=== PATIENT | male | born 1985 | race Caucasian/White ===

== ENCOUNTER 2023-03-28 11:45 | Emergency (ER) | payer OTHER, SELFPAY ==
[2023-03-28 11:54] VITALS: BP 113/66; PULSE 93; RESP 20; TEMP 36.7; O2SAT 98
--- NOTE | 2023-03-28 12:15 | ED.URI ---
HPI - URI/Sore Throat General Chief Complaint: Upper Respiratory Infection Stated Complaint: Nausea, Vomiting, Cough, Sore Throat Time Seen by Provider: 03/28/23 12:15 History of Present Illness HPI Narrative: 37 year old male presented for complaint of nasal congestion and pressure with cough for over 1 week. He states that the onset he hadnausea vomiting diarrhea and sore throat which has resolved. Taking DayQuil and NyQuil without much relief. He reports concerned he is not able to sleep due to the drainage and cough. Denies shortness of breath, wheezing, nausea vomiting, diarrhea, fevers chills Related Data Home Medications Medication Instructions Recorded Confirmed aripiprazole 10 mg tablet 10 mg PO HS 03/28/23 03/28/23 dextroamphetamine-amphetamine 20 20 mg PO HS 03/28/23 03/28/23 mg tablet lamotrigine 100 mg tablet 100 mg PO BID 03/28/23 03/28/23 Allergies Allergy/AdvReac Type Severity Reaction Status Date / Time No Known Allergies Allergy Verified 03/28/23 12:03 Review of Systems Review of Systems: CONSTITUTIONAL: Denies body aches, fever, chills, or sweats. EYES: Denies visual changes, redness, or discharge. ENT: reports rhinorrhea, congestion, Denies otalgia. CARDIOVASCULAR: Denies chest pain, palpitations, or edema. RESPIRATORY: Denies dyspnea. GASTROINTESTINAL: Denies abdominal pain, nausea, vomiting, or diarrhea. SKIN: Denies rash, itching, or wounds. MUSCULOSKELETAL: Denies back pain, joint pain, or myalgia. NEUROLOGIC: Denies headache PMFSH Past Medical History Medical History (Updated 03/28/23 @ 12:31 by Ellie Carmona, JOSE) No pertinent past medical history Exam Narrative: GENERAL: well-appearing, no acute distress. EYES: conjunctivae clear ENT: Mucous membranes moist. TMs pearly manley with normal light reflex bilaterally; no tragal tenderness. Oropharynx erythematous without lesions. Tonsils not enlarged and without exudate. No drooling, no hoarseness, no trismus, uvula midline. No tripod positioning, hot potato voice, or soft palate swelling. NECK: Supple. No lymphadenopathy CHEST: Clear to auscultation, breath sounds equal. No respiratory distress, speaks in full sentences. HEART: Regular rate and rhythm. No murmur heard. SKIN: Warm, dry, no rash. NEURO: Alert and oriented x3. Course Course Emergency Course: Patient is aware of diagnosis, understands and agrees to treatment plan. Anticipatory guidance given. Patient agrees to follow-up as directed and is aware of reasons to seek care at the emergency department. Portions of this record may have been created with voice recognition software Level of Care: Express Care Visit Vital Signs Vital signs: Vital Signs Temperature 98.0 F 03/28/23 11:54 Pulse Rate 93 03/28/23 11:54 Respiratory Rate 20 03/28/23 11:54 Blood Pressure 113/66 03/28/23 11:54 Pulse Oximetry 98 03/28/23 11:54 Oxygen Delivery Room Air 03/28/23 11:54 Temperature 98.0 F 03/28/23 11:54 Pulse Rate 93 03/28/23 11:54 Respiratory Rate 20 03/28/23 11:54 Blood Pressure 113/66 03/28/23 11:54 Pulse Oximetry 98 03/28/23 11:54 Oxygen Delivery Room Air 03/28/23 11:54 MDM - URI/Sore Throat MDM Narrative Medical decision making narrative: Discussed physical exam findings. Advised supportive measures and signs/symptoms to go to the ER. Pt is appropriate for outpt treatment and f/u. Differential Diagnosis Differential diagnosis: Likely upper respiratory infection, otitis media, sinusitis, viral infection and bronchitis Discharge Plan Discharge Clinical Impression: Upper respiratory infection Patient Disposition: Home, Self-Care Condition: Stable Instructions: Antibiotic Form, Upper Respiratory Infection (ED) Additional Instructions: Recommend Flonase spray and Zyrtec (or Claritin/Francesca) over the counter Cough syrup may cause drowsiness; avoid driving or take it at night time. Tylenol
== END 2023-03-28 12:15 | disposition home or self-care (01) ==
PROVIDERS: Emergency Provider Nurse Practitioner Family; PCP Family Medicine
DX: J06.9 Acute upper respiratory infection, unspecified (principal); Z79.899 Other long term (current) drug therapy
CPT/HCPCS: 99213; G0463